=== PATIENT | female | born 1990 | race Caucasian/White ===

== ENCOUNTER 2017-09-26 18:25 | Emergency (ER) | payer MEDICAID ==
[~2017-09-26] VITALS: Ht 160 cm; Wt 67.2 kg
[2017-09-26 23:35] VITALS: BP 129/74
== END 2017-09-27 00:04 | disposition home or self-care (01) ==
LOC: ER 18:25
DX: H00.014 Hordeolum externum left upper eyelid (principal); F17.200 Nicotine dependence, unspecified, uncomplicated
CPT/HCPCS: 99283